=== PATIENT | female | born 1985 | race Caucasian/White ===

== ENCOUNTER 2018-02-27 11:16 | Inpatient (IN) | payer BC ==
[2018-02-27] MEDS ORDERED: Acetaminophen TAB* 325 MG PO PRN (13:06)
[2018-02-27] MEDS ORDERED: Ondansetron INJ* 2 MG/ML VIAL IV PRN (13:07)
[2018-02-27 13:48] LABS: ABS Basophils 0.1 10^3/ul (0-0.2); ABS Eosinophils 0 10^3/ul (0-0.6); ABS Lymphocytes 4.9 10^3/ul (1.0-4.8); ABS Monocytes 0.7 10^3/ul (0-0.8); ABS Neutrophils 5.1 10^3/ul (1.5-7.7); ABS Nucleated RBC 0 10^3/ul; Eosinophil % 0.3 % (0-6); Hematocrit 35 % (35-47); Hemoglobin 11.6 g/dl (12.0-16.0); Lymphocyte % 45.5 % (25-47); Mean Corpuscular HGB Conc 33 g/dl (31-36); Mean Corpuscular Hemoglobin 28 pg (27-31); Mean Corpuscular Volume 84 fL (80-97); Mean Platelet Volume 8.9 um3 (7.4-10.4); Nucleated Red Blood Cells % 0.1; Platelet Count 287 10^3/ul (150-450); Red Blood Count 4.14 10^6/ul (4.0-5.4); Red Cell Distribution Width 14 % (10.5-15); White Blood Count 10.8 10^3/ul (3.5-10.8)
[2018-02-27 14:02] LABS: EGFR Non-African American 91.8 (>60)
[2018-02-27 14:06] LABS: INR 0.87 (0.77-1.02)
[2018-02-27] MEDS ORDERED: Gadoteridol* (CONTRAST) 279.3 MG/ML 10 ML IV ONE (14:57)
--- NOTE | 2018-02-27 15:57 | RAD ---
HISTORY: Multiple sclerosis flare COMPARISONS: December 18, 2017 TECHNIQUE: The following sequences were obtained of the head: Sagittal FLAIR images, axial T2-weighted images, axial FLAIR images, axial susceptibility weighted images, axial T1-weighted images. Additionally, axial diffusion-weighted images were obtained with calculated apparent diffusion coefficients. Additionally, sagittal, coronal, and axial T1-weighted images were obtained after contrast enhancement with a gadolinium-based intravenous contrast agent. FINDINGS: HEMORRHAGE/INFARCT: There is no hemorrhage or acute infarct. MASSES/SHIFT: There is no mass or shift. EXTRA-AXIAL SPACES/MENINGES: There are no extra-axial fluid collections. SULCI AND VENTRICLES: The sulci and ventricles are normal in size and position for the patient's stated age. CEREBRUM: Again noted are multiple scattered small foci of elevated T2/FLAIR signal in the periventricular and subcortical white matter, including lesions that are oriented perpendicular to the surface of the corpus callosum. These are stable when compared to the previous examination. There is no associated abnormal enhancement. BRAINSTEM: There are no focal parenchymal abnormalities. CEREBELLUM: There are no focal parenchymal abnormalities. The cerebellar tonsils are normal in size and position. SELLA: The sella is normal. PINEAL: The pineal region is clear. CP ANGLE/TEMPORAL BONES: The labyrinthine structures are grossly normal. VESSELS: Normal flow-voids are noted within the visualized vertebral vasculature. DIFFUSION ABNORMALITIES: There are no diffusion abnormalities. PARANASAL SINUSES/MASTOIDS: There is a mucous retention cyst of the left maxillary sinus. ORBITS: The orbits are unremarkable. BONES AND SOFT TISSUE: No bone or soft tissue abnormalities are noted. OTHER: There is no abnormal enhancement. IMPRESSION: 1. AGAIN NOTED ARE MULTIPLE WHITE MATTER LESIONS, MOST CONSISTENT WITH DEMYELINATING PLAQUE GIVEN THE HISTORY OF MULTIPLE SCLEROSIS. 2. THERE IS BEEN NO SIGNIFICANT CHANGE COMPARED TO DECEMBER 18, 2017. 3. THERE IS NO ASSOCIATED ABNORMAL ENHANCEMENT TO SUGGEST ACTIVE INFLAMMATION.
--- NOTE | 2018-02-27 16:02 | RAD ---
HISTORY: Multiple sclerosis flare COMPARISONS: December 18, 2017, January 01, 2016 TECHNIQUE: The following sequences were obtained of the cervical spine: Sagittal and axial T1- and T2-weighted images, sagittal STIR images, and axial gradient echo images. Additionally, axial and sagittal T1 weighted images were obtained after contrast enhancement with a gadolinium-based intravenous contrast agent.. FINDINGS: BRAIN AND SPINAL CORD: Again noted are foci of elevated T2/STIR signal within the cervical cord opposite of C2, and C3-C4. The lesion at C3-C4 has slightly decreased in size from the previous examination.. There is a small lesion on the left at C6-C7 thickening identified on the January 01, 2016 examination and is stable. There is no associated abnormal enhancement. ALIGNMENT: The alignment is normal. VERTEBRAL BODIES: The bones are normal in signal intensity. JOINTS: There is no subluxation or dislocation. MUSCULATURE: Unremarkable INTERVERTEBRAL DISCS: The intervertebral discs are normal in height and T2 signal AXIAL IMAGES: C2-C3: There is no disc herniation, spinal stenosis, or neuroforaminal narrowing. C3-C4: Again noted is a mild broad-based disc osteophyte complex with bilateral uncovertebral hypertrophy, without significant neural foraminal narrowing or central canal stenosis. C4-C5: There is no disc herniation, spinal stenosis, or neuroforaminal narrowing. C5-C6: There is no disc herniation, spinal stenosis, or neuroforaminal narrowing. C6-C7: There is no disc herniation, spinal stenosis, or neuroforaminal narrowing. C7-T1: There is no disc herniation, spinal stenosis, or neuroforaminal narrowing. SOFT TISSUES: The visualized soft tissues of the neck are unremarkable. OTHER: There is no abnormal enhancement. IMPRESSION: 1. AGAIN NOTED ARE CERVICAL CORD LESIONS MOST CONSISTENT WITH DEMYELINATING PLAQUE GIVEN THE HISTORY OF MULTIPLE SCLEROSIS. 2. THERE HAS BEEN A SLIGHT INTERVAL DECREASE IN SIZE OF THE LESION AT C3-C4. 3. THERE IS NO ASSOCIATED ABNORMAL ENHANCEMENT TO SUGGEST ACTIVE INFLAMMATION.
[2018-02-27] MEDS: methylPREDNISolone SOD SUCC* 1,000 MG in NS 0.9% 1000 ML* 1,000 ML IVPB SCH (16:12)
--- NOTE | 2018-02-27 16:17 | HP ---
CC: [facility] out at [place]; Dr. Panrell.* HISTORY AND PHYSICAL: DATE OF ADMISSION: 02/27/18. PRIMARY CARE PROVIDER: [facility] out at [place]. ATTENDING PHYSICIAN WHILE IN THE HOSPITAL: Brian Poole MD * (report dictated by Danyel Lujan NP). CONSULTING NEUROLOGIST: Dr. Parnell. CHIEF COMPLAINT: Right leg weakness. HISTORY OF PRESENT ILLNESS: Ms. Goldstein is a 32-year-old female patient who is pretty healthy with the exception she has a history of MS and she is not on any disease modifying agents. She actually touch based with Dr. Parnell today because she noted over the last week that her right leg has become weak. She states that she thinks that she may have pulled the muscle while exercising. She was starting a new exercise routine and that her leg got tight , but since then she has noticed that it has been progressively weak. She states that she cannot lift the leg. She has a hard time bending the knee. She has difficulty with plantar flexion and flexing the foot down. She has noted that she has been walking with crutches. She went to an emergency department where her sister lives, was prescribed prednisone there, but this had not helped. She got in touch with Dr. Parnell today who was concerned for possibly MS flare and she was sent to the hospital for evaluation and treatment. She states that the sensation has been decreased in the right leg. She states that she has noticed that particularly from the ankle up to the thigh. She denied any blurry vision or any changes with speech or any other weakness in the upper extremities. There was concern because of her symptoms and she came in to the hospital today for direct admission and we were asked to evaluate for admission. PAST MEDICAL HISTORY: Significant for MS. PAST SURGICAL HISTORY: Significant for . MEDICATIONS: The home meds according to the patient includes: 1. Turmeric 1000 mg p.o. daily. 2. Vitamin E 200 units p.o. daily. 3. Vitamin D 3000 units p.o. daily. ALLERGIES TO MEDICATIONS: Include: AMOXICILLIN and PENICILLIN. FAMILY HISTORY: Her mother has a history of arthritis. Her father has a history of lung cancer and diabetes. He is . SOCIAL HISTORY: She is a former smoker. She quit over 8 years ago. She rarely uses alcohol. Surrogate decision maker will be her sister. REVIEW OF SYSTEMS: There is no documented fever. She denies having any double vision. No ear discharge. No rhinorrhea. No sore throat. She denies having any cough, fevers,. chills. No nausea, vomiting, diarrhea. No chest pain. No shortness of breath. She denied any loss of consciousness. No dysuria. No frequency. Review of 14 systems completed, all others negative. PHYSICAL EXAMINATION GENERAL: At this time, Ms. Goldstein is a 32-year-old female patient. She is sitting in the hospital bed. She is well nourished, well developed. She does not appear to be in any acute distress. VITAL SIGNS: Blood pressure 104/70, pulse 66, respirations 16, O2 sat 100%, temperature 96.3. HEENT: Head: Atraumatic and normocephalic. Eyes: EOMs are intact. Sclerae anicteric and not pale. Throat: Oral mucosa appears to be moist. No oropharyngeal erythema. NECK: Supple. LUNGS: Clear to auscultation. No wheeze, rales or rhonchi. HEART: Sounds S1, S2. Regular rate and rhythm. No murmurs, rubs or gallops. ABDOMEN: Soft, flat, nontender. Bowel sounds were present. EXTREMITIES: Pulses were 2+ throughout. She has decreased weakness in the right lower extremity. She is about 3/5 strength in the right leg at hip extension and flexion and at knee extension and flexion and she does have 4/5 strength in dorsiflexion of the right foot, on plantar flexion, and again she has no plantar flexion at this point. She had 5/5 strength in the left lower extremity. The upper extremities with 5/5 strength. NEUROLOGIC: She is awake, alert. Her speech is clear. Tongue is midline. She has no facial drooping. She had 5/5 strength in the upper extremities. No drift was noted there. Sensation was equal and intact in the upper extremities. Lower extremities though in the right lower extremity she has decreased sensation to the right lower extremity to gross palpations. She is able to differentiate which leg I am touching at that time, but she does have significant weakness to the right leg compared to the left. No other gross focal deficits. SKIN: Intact. LABORATORY DATA: Labs are pending for today. Last labs I have from 2 years ago, so we are getting a repeat set of labs today. She had an MRI just done in December a couple of months ago, the brain, which impression, multiple foci of elevated T2 FLAIR signal in the periventricular and subcortical white matter, most consistent with demyelinating plaque given the history. With MS, there has been mild progression of disease predominantly in the pericallosal white matter along the left posterior frontal lobe. There is also small focus enhancement in this region suggesting active inflammation and cervical spine MRI again showed lesions in the cervical cord as described, most consistent with swollen plaque, given history of MS, there is stable to decrease in size when compared to December 2015 and abnormal enhancement to suggest acute active inflammation. Old medical records reviewed. ASSESSMENT AND PLAN: Ms. Goldstein is a 32-year-old female patient coming in to the hospital today with complaints of worsening right lateral leg weakness. We were asked to evaluate for admission. She will be admitted under inpatient status for: 1. Right lower extremity weakness: I suspect this is probably an MS flare. I am going to go ahead and check her for any active infections. We are getting a CBC and BMP. We will check her UA. As she is not having any respiratory symptoms, I do not think a chest x-ray is needed. We will give her a gram of Solu-Medrol daily for the next 3 days. I will also do MRI with and without contrast of the brain and cervical spine. Dr. Parnell will be here to evaluate the patient. 2. Fluids, electrolytes and nutrition: She can have a regular diet. 3. DVT prophylaxis. She can be on SCDs. 4. Code status: Full code. TIME SPENT: Time spent on the admission is 60 minutes, greater than half the time was spent [id number] with the patient obtaining my history and physical, other half of the time was spent going over the plan of care with the patient and implementing the plan of care. I discussed the plan of care with my attending, Dr. Poole, he is in agreement. ADNYEL LUJAN NP [id number]/[facility] #: [id number] DARLENE
[2018-02-27 18:50] LABS: Urine Appearance Cloudy; Urine Blood 1+ (Negative); Urine Color Yellow; Urine Ketones Negative (Negative); Urine Protein Negative (Negative); Urine Urobilinogen Negative (Negative)
--- NOTE | 2018-02-27 19:01 | CONS ---
NEUROLOGY CONSULTATION: DATE OF CONSULT: 02/27/18 LOCATION: She is an inpatient in room 417. REFERRING PROVIDER: Fish Lujan NP CHIEF COMPLAINT: Right leg numbness and weakness. HISTORY OF PRESENT ILLNESS: Anne-Marie Goldstein is a 32-year-old woman known to me from outpatient treatment of multiple sclerosis. She had been on Tecfidera, but stopped it on her own. She was trying to control her MS with diet and exercise. Her last MRI scan did reveal a new lesion, but she still declined to go back on disease modifying therapy. She was visiting her sister about 4 days ago and started to develop an ache in her right leg. It progressed where the right leg was heavy and numb. She had increased difficulty walking. She went to a local emergency room and was given oral prednisone. She called our office 2 days later saying that she was not getting any better. I spoke to her on the phone yesterday and recommended that she come to the hospital to be admitted for probable multiple sclerosis relapse, IV steroids, and further evaluation. Other than the new weakness and numbness in her right leg, she has not any other new symptoms. No problems in the arms or change in vision. She has not had any recent fevers, chills, or dysuria. PAST MEDICAL HISTORY: Notable for relapsing remitting multiple sclerosis for several years. Other than that, she is generally in very good health. MEDICATIONS AT HOME: 1. Vitamin D. 2. Vitamin E. 3. Turmeric. ALLERGIES: She is allergic to AMOXICILLIN and PENICILLIN, which caused a rash. FAMILY HISTORY: Negative for multiple sclerosis. Father had lung cancer. REVIEW OF SYSTEMS: Negative for fevers, chills, intestinal problems, urinary problems, shortness of breath, sore throat, cough, skin changes, weight loss, change in vision, sleep pattern change, falls or head injuries. PHYSICAL EXAM: She is well-nourished and well-hydrated. Temperature is 97.6 orally, blood pressure is running about 120/70, heart rate 66 and regular, respiratory rate 16, oxygen saturation is 100% on room air. Skin is warm and dry. Lungs are clear bilaterally. Heart is in a regular rhythm without murmurs. Neck is supple. Oral mucosa is moist and there is no erythema or exudate. Neurological Exam: Eye movements are normal. Optic discs are pale particularly on the left. There is a subtle left afferent pupillary defect. Visual funes are full to confrontation. Facial musculature is symmetric. Facial sensation to light touch is symmetric. Speech is clear without dysarthria. Hearing is intact bilaterally. Neck strength is normal. Motor exam reveals normal tone and strength in the arms proximally and distally. She has resistive strength in the right leg proximally and distally, but it is in the grade 4 range. She has mild left hip flexor weakness in the grade 4+ range. I do not detect any spasticity in the right leg, but there is a trace in the left. There is dysmetria on [id number] maneuver, a little more on the left than the right. She is not able to fully complete [id number] maneuver on the right , but has a fairly normal one with the left lower extremity. Sensory exam is notable for diminished vibration and temperature in the right leg diffusely. Sensory exam is otherwise normal. Reflexes are brisk and symmetric. Plantars are extensor on the right and flexor on the left. I did not attempt to ambulate her. She is alert and oriented and a good historian. Memory seems intact and language is fluent. She has adequate attention, concentration, and fund of knowledge. DIAGNOSTIC STUDIES/LAB DATA: Laboratory data this admission is notable for a normal CBC, normal chemistry profile, negative beta hCG. Urinalysis is pending. MRI of the brain with and without contrast is reviewed and reveals multiple old lesions, but no new lesions since her last MRI in December of 2017. Cervical MRI scan also reveals multiple old lesions, but no enhancing lesions or new lesions since December 2017. IMPRESSION AND PLAN: Impression is that of a multiple sclerosis relapse. There is no evidence of infection so this appears to be a true relapse. She has received prednisone for several days prior to MRI scans, which might have altered the appearance in terms of enhancement. Clinically, I do not think there is any doubt she has had a relapse. She is receiving a 1000 mg of Solu-Medrol today and over the next 2 days as well. I will reevaluate her on Friday and decide whether or not she is well enough to be discharged home or will need rehabilitation. I will have a long discussion with her on Friday about disease modifying agents again and I tried to convince her that with her active disease she will be better off on a disease modifying therapy in terms of relapse reduction and progression of disability. [id number]/[facility] #: [id number] DARLENE
[2018-02-28 06:51] LABS: ABS Basophils 0 10^3/ul (0-0.2); ABS Eosinophils 0 10^3/ul (0-0.6); ABS Lymphocytes 0.8 10^3/ul (1.0-4.8); ABS Monocytes 0 10^3/ul (0-0.8); ABS Nucleated RBC 0 10^3/ul; Eosinophil % 0 % (0-6); Hematocrit 35 % (35-47); Hemoglobin 11.8 g/dl (12.0-16.0); Lymphocyte % 8.1 % (25-47); Mean Corpuscular HGB Conc 34 g/dl (31-36); Mean Corpuscular Hemoglobin 28 pg (27-31); Mean Corpuscular Volume 83 fL (80-97); Mean Platelet Volume 8.9 um3 (7.4-10.4); Nucleated Red Blood Cells % 0.1; Platelet Count 294 10^3/ul (150-450); Red Blood Count 4.22 10^6/ul (4.0-5.4); Red Cell Distribution Width 14 % (10.5-15); White Blood Count 9.9 10^3/ul (3.5-10.8)
[2018-02-28 07:06] LABS: EGFR Non-African American 108.8 (>60)
[2018-02-28] MEDS: methylPREDNISolone SOD SUCC* 1,000 MG in NS 0.9% 1000 ML* 1,000 ML IVPB SCH (09:32)
--- NOTE | 2018-02-28 10:14 | PN ---
Subjective Date of Service: 02/28/18 Interval History: No new issues overnight. RLE remains weak and she notes tingling. She states that she took a "seizure medication" in the past for tingling an it really helped, she is asking if she could start that again. She notes some very mild tingling in the right left foot for the last several day. Notes Right side is 60% sensation compared to left. No vision changes, no speech or swallowing difficulties, no other focal weakness, no bladder or bowel issues. No issues with the steroids. MRI Brain/C-spine: No new enhancement. Old lesions present but stable. I personally reviewed the films. Objective Active Medications: Acetaminophen (Tylenol Tab*) 650 mg PO Q6H PRN PRN Reason: FEVER/PAIN Methylprednisolone Sodium Succinate 1,000 mg/ Sodium Chloride 1,000 mls @ 100 mls/hr IVPB DAILY ISMAEL Stop: 03/01/18 21:00 Last Admin: 02/28/18 09:32 Dose: 100 mls/hr Ondansetron HCl (Zofran Inj*) 4 mg IV Q6H PRN PRN Reason: NAUSEA Vital Signs 02/27/18 02/27/18 02/27/18 12:37 16:39 19:55 Temperature 96.3 F 97.6 F 97.5 F Pulse Rate 66 69 85 Respiratory 16 16 16 Rate Blood Pressure 104/70 118/70 105/66 (mmHg) O2 Sat by Pulse 100 100 99 Oximetry 02/27/18 02/27/18 02/27/18 20:00 22:45 23:41 Temperature 97.9 F Pulse Rate 80 Respiratory 18 20 Rate Blood Pressure 102/63 (mmHg) O2 Sat by Pulse 99 99 Oximetry 02/28/18 02/28/18 02:41 07:42 Temperature 97.6 F 98.4 F Pulse Rate 70 69 Respiratory 20 16 Rate Blood Pressure 102/63 111/64 (mmHg) O2 Sat by Pulse 99 98 Oximetry Oxygen Devices in Use Now: None Neurology Exam: General: Awake, Alert, Oriented x3 HEENT: Normocephalic/atraumatic, sclera anicteric, mucous membranes moist Neck: Supple Chest: Clear to auscultation bilaterally Cardiovascular: Regular rate and rhythm without murmurs, rubs, gallops Abdomen: Soft, nontender/nondistended Extremities: No cyanosis, or edema. Multiple arm tattoos noted Neurological Findings: Speech: fluent without dysarthria, repetition intact Cranial Nerve: PEERL, No APD, EOM intact, VFF, no nystagmus, face symmetric bilaterally, facial sensation intact, hearing intact to finger rub bilaterally, palate elevates symmetrically, tongue midline Motor: 5/5 throughout except 4/5 proximal RLE, 4+/5 distal RLE, normal tone throughout Sensation: Tingling with numbness (60% compared to left) entire RLE. Mild tingling entire left fooot Deep Tendon Reflex: 3+ symmetric in the upper/lower extremities, Babinski withdraw bilaterally, ? Upgoing on right Finger to nose, rapid alternating movements intact without tremor, some difficulty with R H-->S Gait: Not tested this am Result Diagrams: 02/28/18 06:37 02/28/18 06:37 Assessment/Plan 32 year old with RRMS, off Tecfidera for some time, presents with 3-4 days of RLE numbness, tingling and weakness and left foot tingling. MRIs of Brain and C -spine show no new enhancement but old lesions present 1. Day 2/3 of IV Steroids 2. Start Gabapentin 100mg po tid for pareshtesias 3. Dr. Parnell to evaluate tomorrow and will likely go home. May need PT as o/ p 4. She can discuss further treatment options/DMT as outpatient with Dr. Parnell. No changes to treatment plan at this time. Tolerating steroids without difficulty.
--- NOTE | 2018-02-28 10:40 | PN ---
Subjective Date of Service: 02/28/18 Interval History: Patient seen and examined. No change in status per patient report. Has tingling sensation to RLE that is persistent and remains weak on RLE. Denies SOB, no chest pain, no sweats no n/v. Objective Active Medications: Acetaminophen (Tylenol Tab*) 650 mg PO Q6H PRN PRN Reason: FEVER/PAIN Gabapentin (Neurontin Cap(*)) 100 mg PO TID ISMAEL Methylprednisolone Sodium Succinate 1,000 mg/ Sodium Chloride 1,000 mls @ 100 mls/hr IVPB DAILY ISMAEL Stop: 03/01/18 21:00 Last Admin: 02/28/18 09:32 Dose: 100 mls/hr Ondansetron HCl (Zofran Inj*) 4 mg IV Q6H PRN PRN Reason: NAUSEA Vital Signs - 8 hr 02/28/18 02/28/18 02:41 07:42 Temperature 97.6 F 98.4 F Pulse Rate 70 69 Respiratory 20 16 Rate Blood Pressure 102/63 111/64 (mmHg) O2 Sat by Pulse 99 98 Oximetry Oxygen Devices in Use Now: None Appearance: Alert, NAD Ears/Nose/Mouth/Throat: NL Teeth, Lips, Gums, Mucous Membranes Moist Neck: Trachea Midline Respiratory: Symmetrical Chest Expansion and Respiratory Effort, Clear to Auscultation Cardiovascular: NL Sounds; No Murmurs; No JVD, RRR, No Edema Extremities: No Edema, No Clubbing, Cyanosis Skin: No Rash or Ulcers Neurological: Alert and Oriented x 3 Nutrition: Taking PO's Result Diagrams: 02/28/18 06:37 02/28/18 06:37 Diagnostic Imaging: MRI BRAIN: Patient Name: PALLAVI FOY Medical Record#: [id number] Ordering Physician: Fish Lujan [employer] Acct.#: [id number] : 1985 Age: 32 Sex: F Location: [address] [place] [address] MEDICAL Exam Date: 02/27/18 1307 ADM Status: ADM IN Order Information: MRI BRAIN W/WO Accession Number: [id number] CPT: 87834 HISTORY: Multiple sclerosis flare COMPARISONS: December 18, 2017 TECHNIQUE: The following sequences were obtained of the head: Sagittal FLAIR images, axial T2-weighted images, axial FLAIR images, axial susceptibility weighted images, axial T1-weighted images. Additionally, axial diffusion-weighted images were obtained with calculated apparent diffusion coefficients. Additionally, sagittal, coronal, and axial T1-weighted images were obtained after contrast enhancement with a gadolinium-based intravenous contrast agent. FINDINGS: HEMORRHAGE/INFARCT: There is no hemorrhage or acute infarct. MASSES/SHIFT: There is no mass or shift. EXTRA-AXIAL SPACES/MENINGES: There are no extra-axial fluid collections. SULCI AND VENTRICLES: The sulci and ventricles are normal in size and position for the patient's stated age. CEREBRUM: Again noted are multiple scattered small foci of elevated T2/FLAIR signal in the periventricular and subcortical white matter, including lesions that are oriented perpendicular to the surface of the corpus callosum. These are stable when compared to the previous examination. There is no associated abnormal enhancement. BRAINSTEM: There are no focal parenchymal abnormalities. CEREBELLUM: There are no focal parenchymal abnormalities. The cerebellar tonsils are normal in size and position. SELLA: The sella is normal. PINEAL: The pineal region is clear. CP ANGLE/TEMPORAL BONES: The labyrinthine structures are grossly normal. VESSELS: Normal flow-voids are noted within the visualized vertebral vasculature. DIFFUSION ABNORMALITIES: There are no diffusion abnormalities. PARANASAL SINUSES/MASTOIDS: There is a mucous retention cyst of the left maxillary sinus. ORBITS: The orbits are unremarkable. BONES AND SOFT TISSUE: No bone or soft tissue abnormalities are noted. OTHER: There is no abnormal enhancement. IMPRESSION: 1. AGAIN NOTED ARE MULTIPLE WHITE MATTER LESIONS, MOST CONSISTENT WITH DEMYELINATING PLAQUE GIVEN THE HISTORY OF MULTIPLE SCLEROSIS. 2. THERE IS BEEN NO SIGNIFICANT CHANGE COMPARED TO DECEMBER 18, 2017. 3. THERE IS NO ASSOCIATED ABNORMAL ENHANCEMENT TO SUGGEST ACTIVE INFLAMMATION. <Electronically signed by Andre Mazariegos MD in [place]> 02/27/181553 Dictated By: Andre Mazariegos MD Dictated Date/Time: 02/27/18 1554 Transcribed Date/Time: 02/27/18 2159 Copy to: 1 of 2 MRI C-SPINE: Patient Name: PALLAVI FOY Medical Record#: [id number] Ordering Physician: Fish Lujan NP Acct.#: [id number] : 1985 Age: 32 Sex: F Location: [address] [place] [address] Exam Date: 02/27/18 1307 ADM Status: ADM IN Order Information: MRI CERVICAL SPINE W/WO Accession Number: [id number] CPT: 47571 HISTORY: Multiple sclerosis flare COMPARISONS: December 18, 2017, January 01, 2016 TECHNIQUE: The following sequences were obtained of the cervical spine: Sagittal and axial T1- and T2-weighted images, sagittal STIR images, and axial gradient echo images. Additionally, axial and sagittal T1 weighted images were obtained after contrast enhancement with a gadolinium-based intravenous contrast agent.. FINDINGS: BRAIN AND SPINAL CORD: Again noted are foci of elevated T2/STIR signal within the cervical cord opposite of C2, and C3-C4. The lesion at C3-C4 has slightly decreased in size from the previous examination.. There is a small lesion on the left at C6-C7 thickening identified on the January 01, 2016 examination and is stable. There is no associated abnormal enhancement. ALIGNMENT: The alignment is normal. VERTEBRAL BODIES: The bones are normal in signal intensity. JOINTS: There is no subluxation or dislocation. MUSCULATURE: Unremarkable INTERVERTEBRAL DISCS: The intervertebral discs are normal in height and T2 signal AXIAL IMAGES: C2-C3: There is no disc herniation, spinal stenosis, or neuroforaminal narrowing. C3-C4: Again noted is a mild broad-based disc osteophyte complex with bilateral uncovertebral hypertrophy, without significant neural foraminal narrowing or central canal stenosis. C4-C5: There is no disc herniation, spinal stenosis, or neuroforaminal narrowing. C5-C6: There is no disc herniation, spinal stenosis, or neuroforaminal narrowing. C6-C7: There is no disc herniation, spinal stenosis, or neuroforaminal narrowing. C7-T1: There is no disc herniation, spinal stenosis, or neuroforaminal narrowing. SOFT TISSUES: The visualized soft tissues of the neck are unremarkable. OTHER: There is no abnormal enhancement. IMPRESSION: 1. AGAIN NOTED ARE CERVICAL CORD LESIONS MOST CONSISTENT WITH DEMYELINATING PLAQUE GIVEN THE HISTORY OF MULTIPLE SCLEROSIS. 2. THERE HAS BEEN A SLIGHT INTERVAL DECREASE IN SIZE OF THE LESION AT C3-C4. 3. THERE IS NO ASSOCIATED ABNORMAL ENHANCEMENT TO SUGGEST ACTIVE INFLAMMATION. <Electronically signed by Andre Mazariegos MD in [place]> 02/27/181558 Dictated By: Andre Mazariegos MD Dictated Date/Time: 02/27/181558 Transcribed Date/Time: 02/27/181553 Copy to: 1 of 2 Assess/Plan/Problems-Billing This is a 32 y/o female with RRMS, off Tecfidera, presents to ER with 3-4 days of RLE numbness, tingling and weakness. - Patient Problems (1) Multiple sclerosis exacerbation Code(s): G35 - MULTIPLE SCLEROSIS SNOMED Code(s): 593128450 Comment: - Plan per neurology - Continue IV solumedrol 1 gram, dose 2 of 3 today - Initiate low dose gabapentin TID - Monitor glucose while on steroids Status and Disposition: Remain inpatient for IV steroid regimen. Likely DC tomorrow.
[2018-02-28] MEDS: Gabapentin CAP(*) 100 MG PO SCH ×2 (15:13→19:48)
[2018-03-01] MEDS: Gabapentin CAP(*) 100 MG PO SCH ×2 (08:32→14:46)
[2018-03-01] MEDS: methylPREDNISolone SOD SUCC* 1,000 MG in NS 0.9% 1000 ML* 1,000 ML IVPB SCH (09:03)
[2018-03-01] MEDS ORDERED: methylPREDNISolone SOD SUCC* 1,000 MG in NS 0.9% 1000 ML* 1,000 ML IVPB SCH (11:44)
--- NOTE | 2018-03-01 13:15 | PN ---
NEUROLOGY CONSULTATION FOLLOWUP: DATE OF FOLLOWUP: 03/01/18 LOCATION: She is a inpatient 417. HOSPITALIST: Lilo Carpenter NP CHIEF COMPLAINT: Right leg weakness. INTERVAL HISTORY: Since yesterday, Anne-Marie feels she is improving. She does not have as much tingling and numbness in her right leg. She still has pain about the right knee, but that is pretty chronic. She feels that her right leg is stronger. She was up walking yesterday and she thinks that irritated her chronic knee problem. She has not noticed any problems in her upper extremities. No change in vision. No intestinal complaints. MEDICATIONS: Reviewed and she is on; 1. Solu-Medrol 1000 mg in 1 liter at 100 mL per hour. 2. Gabapentin 100 mg p.o. t.i.d. 3. Zofran 4 mg IV q.6 hours p.r.n. nausea. PHYSICAL EXAMINATION: On exam, she remains afebrile, blood pressure is running about 100 to 110 systolic over 60 to 90 diastolic, heart rate is in the 60s, respiratory rate is 16. Oxygen saturation is 98% on room air. Lungs are clear bilaterally. Heart is in a regular rhythm without murmurs. There is pain and a little bit of swelling about the right knee. Neurologic Exam: Pupils react equally from about 4 to 2.5 mm. Eye movements are normal. Facial musculature is symmetric. Palate and tongue are normal and speech is clear without dysarthria. There is no spasticity or weakness in the upper extremities. She has good resistive strength proximally and distally. She has normal strength in the left leg proximally and distally. She has some mild right hip flexor weakness. Ankle dorsiflex weakness about grade 4+. Plantar flexion is strong. She is alert, oriented, and good detailed historian. Memory is intact and language is fluent. LABORATORY DATA: Laboratory data is reviewed and her urinalysis on 02/27/18 was unremarkable. Chemistries and CBC were unremarkable as well. Her lymphocyte count was low at 0.8 yesterday, when she was admitted it was 4.9. IMPRESSION: Improvement in her multiple sclerosis relapse. Her MRI did not show new or enhancing lesions, but she had gotten some steroids. She feels that she could go home to her sister's house after IV steroids are finished. We discussed going back on a disease modifying agent and she agrees to go back on Tecfidera. She did not tolerate Avonex, Copaxone, or Gilenya in the past. I will send in a prescription to her pharmacy. I would recommend she be discharged on a tapering dose of prednisone starting at 60 mg a day for two days, 40 mg a day for two days, and then 20 mg a day for three days. She can continue gabapentin for her leg pain at 100 mg three times per day. I will see her in my office in a few weeks and encouraged her to remain on Tecfidera or choose a different disease modifying agent. I have discussed the plan with Lilo Carpenter, who is her hospitalist today. [id number]/[facility] #: [id number] [facility] CENTERGenesis
[2018-03-01 15:36] VITALS: BP 107/46
--- NOTE | 2018-03-01 22:42 | DS ---
CC: Dr. Parnell * DISCHARGE SUMMARY: DATE OF ADMISSION: 02/27/18 DATE OF DISCHARGE: 03/01/18 PRIMARY CARE PHYSICIAN: [facility]. PRIMARY NEUROLOGIST: Dr. Inocencio Parnell. MY ATTENDING FOR TODAY: Dr. Brian Poole.* (DICTATED BY SUNNY BROOKS NP) HOSPITAL COURSE: This is a very pleasant 32-year-old female patient, who arrived in the emergency room with a complaint of right lower extremity weakness with some tingling sensation and paresthesias. The patient has known history of MS and has not been on any disease-modifying agents recently. She was on several different medications in the past, which she had difficulty tolerating. The patient takes only turmeric at this time and was found to be in an acute flare. MRI of the brain and cervical spine showed old lesions, but no acute lesions or activity. The patient was seen by Dr. Parnell. The patient was started on 1 g of Solu-Medrol x3 doses on day 1. She is completing her course today. She was also seen by Dr. Cristobal of the neurological service and was placed on gabapentin 100 mg 3 times a day with good effect. The patient had some swelling of the right knee yesterday, 02/28/18; however, she responded with ice and elevation. The patient does have chronic knee problems. Initially, it was felt that she may have a DVT on that side; however, upon further examination, she had no calf pain, no claudication. We discussed this with the patient and with Dr. Parnell and the venous Doppler was subsequently canceled. The patient was ambulatory. She has had no changes in her vital signs or labs. We did monitor her blood sugar given her high dose of steroids. Sugar maximum was 127 and averaged in the high 80s. PHYSICAL EXAMINATION: Vital signs on the day of discharge: Blood pressure 115/ 62, heart rate 96, respiratory rate 17, temperature 97.4, room air saturation 100%. HEENT: The patient is atraumatic, normocephalic. PERRLA with nonicteric sclerae. Neck: Supple. No thyromegaly appreciated. No carotid bruits auscultated. Cardiovascular: S1, S2 present. Rate and rhythm are regular with no murmurs, gallops, or rubs. Lungs: Clear bilaterally to auscultation with no adventitious breath sounds. Abdomen: Soft, nontender, nondistended. Positive bowel sounds in all 4 quadrants. No organomegaly appreciated. : Deferred. Musculoskeletal: There is no clubbing and no cyanosis. She has some anterior medial edema to the right knee, tender to palpation, at baseline. She has steady gait and +2 distal pulses with no further acute findings. Neurologic : She does have gross motor and sensation intact. She does have some again complaints of paresthesias and tingling; however, it is much improved from admission. Psychiatric: She is cooperative and appropriate. DIAGNOSTIC STUDIES/LAB DATA: Laboratories: Sodium 139, potassium 4.1, chloride 106, CO2 25, creatinine 0.63, BUN 11. WBC is 9.9, RBC is 4.22, hemoglobin 11.8, hematocrit 35, platelets 294. Urinalysis was negative for any infectious process. She did have HIV antibodies drawn 1 and 2, which were non- reactive. Imaging: MRI as stated with old lesions and no new acute findings. No hemorrhage or infarcts noted. DISPOSITION/PLAN: The patient was cleared by Neurology today for discharge to home. She will be staying with her sister to help and care of her child. The patient will follow up with Dr. Parnell in 1 month. She has agreed to be started on Tecfidera as an outpatient. Again, she will follow up with Dr. Parnell regarding initiation of this therapy. She can follow up with her primary care group as needed. The patient stated her understanding of her medications and her followups at the time of discharge. SUNNY BROOKS NP [id number]/[facility] #: [id number] DARLENE
== END 2018-03-01 16:45 | disposition home or self-care (01) | DRG 43 ==
LOC: MED 12:32 → OBSVTOIN 12:32 → INTOOBSV 12:32
PROVIDERS: ADMIT Psychiatry & Neurology Neurology; ATTEND Internal Medicine
DX: G35 Multiple sclerosis (principal); Z88.1 Allergy status to other antibiotic agents; Z88.0 Allergy status to penicillin; Z80.1 Family history of malignant neoplasm of trachea, bronchus and lung; Z82.61 Family history of arthritis; Z83.3 Family history of diabetes mellitus; Z87.891 Personal history of nicotine dependence; Z72.89 Other problems related to lifestyle; M25.461 Effusion, right knee
CPT/HCPCS: 36415; 70553; 72156; 80048; 81003; 81015; 84702; 85025; 85610; 86703; 87086; A9270-GY; A9579; J2930